=== PATIENT | male | born 1990 | race Caucasian/White ===

== ENCOUNTER → 2020-05-11 11:02 | Outpatient (BNVA) | payer OTHER, SELFPAY | PROVIDERS: Visit Provider Internal Medicine | DX: S61.210D Laceration without foreign body of right index finger without damage to nail, subsequent encounter (principal); X58.XXXD Exposure to other specified factors, subsequent encounter; M24.541 Contracture, right hand | CPT/HCPCS: 99203 ==

== ENCOUNTER → 2020-05-19 15:05 | Outpatient (BNVA) | payer OTHER, SELFPAY | PROVIDERS: Visit Provider Physician Assistant | DX: S61.210D Laceration without foreign body of right index finger without damage to nail, subsequent encounter (principal); S66.312D Strain of extensor muscle, fascia and tendon of right middle finger at wrist and hand level, subsequent encounter; X58.XXXD Exposure to other specified factors, subsequent encounter | CPT/HCPCS: 99213 ==

== ENCOUNTER 2023-09-28 23:50 | Emergency (ER) | payer SELFPAY ==
[2023-09-29] VITALS: BP 148/90; BP 153/105; PULSE 100; PULSE 90; RESP 20; TEMP 36.8; O2SAT 97; BMI 27.4
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
--- NOTE | 2023-09-29 00:41 | MHC.EDTECH ---
pt unwilling to give blood sample at this time. states I shouldn't even be here why should I give blood if I am already stuck here? RN AWARE.
[2023-09-29 00:42] LABS: Amphetamine Screen Urine Not Detected (Not Detect); Barbiturates, Urine Not Detected (Not Detect); Benzodiazepines Screen Urine Not Detected (Not Detect); Buprenorphine Scr Not Detected (Not Detect); Cannabinoid Screen Urine Not Detected (Not Detect); Cocaine Screen Urine POSITIVE (Not Detect); Fentanyl, urine Not Detected (Not Detect); Methadone Screen, Urine Not Detected (Not Detect); Opiate Screen Urine Not Detected (Not Detect); Oxycodone Screen Urine Not Detected (Not Detect); Phencyclidine Screen Urine Not Detected (Not Detect)
--- NOTE | 2023-09-29 00:54 | PC.NURSE ---
mian/ phone number krysta [phone]
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
[2023-09-29 01:10] LABS: MANUAL DIFF FLAG NO
[2023-09-29 01:11] LABS: Basophils Absolute Auto 0.1 X10*3/uL (0.0-0.2); Basophils Percent Auto 0.8 % (0-2); Eosinophils Absolute Auto 0.3 X10*3/uL (0.0-0.4); Eosinophils Percent Auto 3.8 % (0-4); Hematocrit 41.5 % (42.0-52.0); Hemoglobin 14.8 g/dl (14.0-18.0); Imm Gran Abs Auto 0.02 X10*3/uL (0.00-0.03); Imm Gran Pct Auto 0.3 % (0.0-0.4); Lymphocytes Absolute Auto 1.2 X10*3/uL (1.2-4.9); Lymphocytes Percent Auto 17.3 % (20-40); Mean Corpuscular HGB Conc 35.7 g/dl (31.0-36.0); Mean Corpuscular Volume 86.8 fL (80.0-98.0); Mean Platelet Volume 9.9 fL (9.4-12.4); Monocytes Absolute Auto 0.5 X10*3/uL (0.1-1.2); Monocytes Percent Auto 6.6 % (2-11); Neutrophils Absolute Auto 5.1 x10*3/uL (2.0-8.3); Neutrophils Percent Auto 71.2 % (45-73); Platelet Count 308 X10*3/uL (160-400); Red Blood Count 4.78 X10*6/uL (4.60-5.80); Red Cell Distribution Width 12.1 % (11.0-16.0); White Blood Count 7.2 X10*3/uL (4.8-10.8)
--- NOTE | 2023-09-29 01:12 | MHC.EDTECH ---
pt allowed t/w to draw lab work. RN AND PROVIDER AWARE.
[2023-09-29 01:25] LABS: Alanine Aminotransferase 78 U/L (0-40); Albumin Level 4.7 g/dL (3.5-5.0); Alkaline Phosphatase 96 U/L (39-117); Anion Gap 18 (12-20); Aspartate Amino Transferase 71 U/L (5-37); Bilirubin Direct 0.1 mg/dL (0.0-0.5); Bilirubin Total 0.3 mg/dL (0.0-1.0); Blood Urea Nitrogen 11 mg/dL (9-16); Calcium 9.6 mg/dL (8.4-10.2); Carbon Dioxide 25 mmol/L (22-29); Chloride 103 mmol/L (96-108); Estimated Glomerular Filt Rate > 60; Ethanol 206 mg/dL; Glucose Random 122 mg/dL (60-115); Magnesium 1.9 mg/dL (1.6-2.6); Potassium 4.5 mmol/L (3.3-5.1); Sodium 141 mmol/L (135-145); Total Protein 7.4 g/dL (6.5-8.0)
--- NOTE | 2023-09-29 02:02 | PC.NURSE ---
patient asked for legal rules of section 12. provided patient with two [place].gov handouts. allowed client to call gf. notified charge nurse of clients behavior/mood.
--- NOTE | 2023-09-29 02:14 | PC.NURSE ---
clients girlfriend called, asked additional questions, t/w reviewed assessment procedure with clients support person, client asks questions periodically also.
--- NOTE | 2023-09-29 03:25 | PC.NURSE ---
this client was allowed outgoing and icoming phonecalls prior and asked to make additional call (outside of normal phone times) t/w declined this request as the room most proximal to phone-client had awakened in the last hour.
--- NOTE | 2023-09-29 04:28 | PC.NURSE ---
despite t/w's advice to get rest prior to seeing clinician, client conitues to pace punctuated by sitting periodically in rear common area where client is housed presently.
--- NOTE | 2023-09-29 04:53 | PC.NURSE ---
client provided pillow and now appears to be trying to rest.
[2023-09-29 05:59] VITALS: RESP 16
--- NOTE | 2023-09-29 07:01 | PC.NURSE ---
Assumed care of patient at 0645. Patient is laying quietly in their bed. No signs of distress, breathing is even and unlabored.
[2023-09-29 09:15] VITALS: BP 136/96; PULSE 93; RESP 18; TEMP 36.7; O2SAT 97
[2023-09-29 09:34] VITALS: BP 136/96; PULSE 93; RESP 18; TEMP 36.7; O2SAT 97
== END 2023-09-29 09:38 | disposition home or self-care (01) ==
PROVIDERS: Emergency Provider Emergency Medicine
DX: F41.9 Anxiety disorder, unspecified (principal); R45.851 Suicidal ideations; F14.90 Cocaine use, unspecified, uncomplicated; F10.920 Alcohol use, unspecified with intoxication, uncomplicated; Y90.7 Blood alcohol level of 200-239 mg/100 ml
CPT/HCPCS: 36415; 80048; 80076; 80307; 83735; 85025; 99284; 99285; S9485

== ENCOUNTER 2023-12-06 | Outpatient (REF) | payer OTHER, SELFPAY ==
[2023-12-07 10:40] LABS: Amphetamine Screen Urine Not Detected (Not Detect); Barbiturates, Urine Not Detected (Not Detect); Benzodiazepines Screen Urine Not Detected (Not Detect); Buprenorphine Scr Not Detected (Not Detect); Cannabinoid Screen Urine Not Detected (Not Detect); Cocaine Screen Urine Not Detected (Not Detect); Fentanyl, urine Not Detected (Not Detect); Methadone Screen, Urine Not Detected (Not Detect); Opiate Screen Urine Not Detected (Not Detect); Oxycodone Screen Urine Not Detected (Not Detect); Phencyclidine Screen Urine Not Detected (Not Detect)
== END 2023-12-06 00:01 | disposition home or self-care (01) ==
LOC: HO.LNP
PROVIDERS: Visit Provider Psychiatry & Neurology Psychiatry
DX: F14.90 Cocaine use, unspecified, uncomplicated (principal); F10.20 Alcohol dependence, uncomplicated; F33.1 Major depressive disorder, recurrent, moderate
CPT/HCPCS: 80307

== ENCOUNTER → 2023-12-06 11:30 | Outpatient (BNV) | payer OTHER, SELFPAY | PROVIDERS: Visit Provider Psychiatry & Neurology Psychiatry | DX: F10.20 Alcohol dependence, uncomplicated (principal); F43.10 Post-traumatic stress disorder, unspecified; F32.A Depression, unspecified; F43.21 Adjustment disorder with depressed mood; F41.1 Generalized anxiety disorder; F14.10 Cocaine abuse, uncomplicated | CPT/HCPCS: 90792; 99213; 99499 ==

== ENCOUNTER 2023-12-19 11:30 | Outpatient (RCR) | payer OTHER, SELFPAY ==
[2023-12-06 11:11] VITALS: BMI 25.7
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
[2023-12-06 12:06] VITALS: BP 144/83; PULSE 66
--- NOTE | 2023-12-06 14:56 | HO.PHP ---
Client's case has been opened and reviewed in team.
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
--- NOTE | 2023-12-11 22:28 | HO.PHPPROGNO ---
Subjective Subjective Date of Service: 12/11/23 Reason For Visit: depression,anxiety,AUD,CHADD Interim History: Patient seen for follow up. Clonidine helpful for anxiety, was taking twice a day, in AM and afternoon, but in the past day or two has only been taking in the AM. Not feeling anxious in the afternoon. He continues to find groups very helpful and is committed to recovery. He denies any alcohol or substance use in the interim. Denies any cravings. Mood has been great...I'm genuinely happy . He has not found prazosin helpful, has continued to have stress dreams and perhaps more vividly with prazosin. Will stop prazosin and bump up prn clonidine to TID dosing. Denies any hopelessness or SI. Medication Compliance: Yes Side effects from medications: No Attending Groups: Yes Review of Systems Acute medical concerns: No Mental Status Exam Mental Status Exam Narrative: Calm, cooperative, alert, oriented. No tics or tremor. Mood anxious, euthymic, affect anxious, brighter. Speech normal. No evidence of thought disorder. Thought content relevant to stressors, focused on recovery, denies hopelessness or SI. Denies perceptual disturbance and does not appear to be internally preoccupied. Insight/judgment fair to good. Diagnostics Vital Signs (24Hr): BMI result Body Mass Index 25.7 Assessment & Plan Assessment & Plan (1) Alcohol dependence: Status: Acute Code(s): F10.20 - Alcohol dependence, uncomplicated (2) PTSD (post-traumatic stress disorder): Status: Acute Code(s): F43.10 - Post-traumatic stress disorder, unspecified (3) Depression, unspecified: Status: Acute Code(s): F32.A - Depression, unspecified (4) Complicated bereavement: Status: Acute Code(s): F43.21 - Adjustment disorder with depressed mood (5) Other anxiety states: Status: Acute Code(s): F41.1 - Generalized anxiety disorder (6) Cocaine abuse: Status: Acute Code(s): F14.10 - Cocaine abuse, uncomplicated Plan hold prazosin increase clonidine 0.1 mg to TID consider thiamine Naltrexone revisited however patient denies any cravings, and does not feel he needs the additional treatment at this time Continue other regular medications? Routine lab work considered, EKG, routine, UDS as indicated Continue to monitor Patient educated on: diagnosis, medication risk/benefits and substance abuse Informed Consent: understands Reason for contiued partial hosp. stay Substantial Risk for: med/psych decompensation Certification I certify that partial hospital treatment is medically necessary due to the symptoms and problems resulting from the patient's mental illness and the failure to treat the patient at the partial hospital level of care would likely result in the patient requiring inpatient psychiatric care which could not be prevented at a less intensive level of care. Total time managing care of this patient today __30__ minutes. Discharge Plan Discharge Attending provider: Nayely Prado Medications: New clonidine HCl 0.1 mg tablet 0.1 mg PO BID PRN (Reason: anxiety) Qty: 30 0RF Rx Instructions: do not take after 5pm Continued omeprazole 20 mg Capsule,Delayed Release(Dr/Ec) 20 mg PO DAILY Patient Comments: Patient takes OTC. cholecalciferol (vitamin D3) [Vitamin D3] 50 mcg (2,000 unit) Capsule 50 mcg PO DAILY Patient Comments: Patient takes OTC magnesium glycinate 100 mg Tablet PO DAILY Stand Alone Forms: Patient Portal Discharge page Print Language: [place]
--- NOTE | 2023-12-12 11:31 | HO.PHP ---
PHP staff member faxed over a referral for OP therapy, med management, and a elementary instructional coach for Lio through [facility]. PHP staff member is awaiting on those scheduled appointment dates and times.
--- NOTE | 2023-12-18 09:57 | HO.PHP ---
PHP staff member received an email with Lio's upcoming OP therapy intake appointment along with med provider appointment through [facility]. The appointments are below: 12/21/2023 09:00 AM - 09:30 AM Urgent Care Individual Therapy Prog: [facility] Site: [address] [place] [address] Staff: AMANDA CHAN 01/16/2024 09:00 AM - 10:00 AM Psychiatric E/M New - Face to Face v2 Prog: Psychiatric Services Site: [facility] Staff: LOKESH HUBER
--- NOTE | 2023-12-18 10:09 | PC.NURSE ---
New PCP appointment [facility]. [address], [place] Office #[phone]. Patient called and left a message for a new patient appointment. He is awaiting call back for appointment.
--- NOTE | 2023-12-18 20:27 | HO.PHPPROGNO ---
Subjective Subjective Date of Service: 12/18/23 Reason For Visit: depression,anxiety,AUD,CHADD Interim History: Patient seen for follow-up, anticipating discharge at the end of program today.? Reports no acute issues or concerns. ? I am so grateful for this program. Everyone was so supportive. I feel more optimistic and ready to take next steps . He has continued on clonidine which is very helpful for anxiety, and for sleep. Medication compliant, medications well-tolerated. Denies any adverse effects. Denies having any cravings at this time and is committed to his sobriety. Mood is stable.? Denies any hopelessness or SI. Denies thoughts of harming self or others at this time. Denies any aggressive ideation or HI. Denies any paranoia or AH or VH. Sleep, appetite, energy stable. work signed and given to patient, copy sent for scanning to chart Medication Compliance: Yes Side effects from medications: No Attending Groups: Yes Review of Systems Acute medical concerns: No Medical Review of Systems: unchanged Mental Status Exam Mental Status Exam Narrative: Calm, cooperative, alert, oriented. No tics or tremor. Mood anxious, euthymic, affect anxious, brighter. Speech normal. No evidence of thought disorder. Thought content relevant to stressors, focused on recovery, denies hopelessness or SI. Denies perceptual disturbance and does not appear to be internally preoccupied. Insight/judgment fair to good. Diagnostics Vital Signs (24Hr): BMI result Body Mass Index 25.7 Assessment & Plan Assessment & Plan (1) Alcohol dependence: Status: Acute Code(s): F10.20 - Alcohol dependence, uncomplicated (2) PTSD (post-traumatic stress disorder): Status: Acute Code(s): F43.10 - Post-traumatic stress disorder, unspecified (3) Depression, unspecified: Status: Acute Code(s): F32.A - Depression, unspecified (4) Complicated bereavement: Status: Acute Code(s): F43.21 - Adjustment disorder with depressed mood (5) Other anxiety states: Status: Acute Code(s): F41.1 - Generalized anxiety disorder (6) Cocaine abuse: Status: Acute Code(s): F14.10 - Cocaine abuse, uncomplicated Plan [facility]charge from [facility] tomorrow may continue clonidine 0.1 mg to TID for anxiety, sleep now that prazosin has been discontinued may take magnesium glycinate 300-400 mg qhs continue thiamine 100 mg qd continue vitamin D3 2000 IU daily Naltrexone revisited however patient denies any cravings, and does not feel he needs the additional treatment at this time Refills sent to pharmacy Will defer further medication management to outpatient provider - meets with new provider on 01/15 *Safety plan reviewed *Discharge diagnoses, treatment course, discharge plan have been reviewed with patient (including medication regime, medication management, potential side effects) as well as treatment rationale were also revisited *Discharge paperwork signed and given to patient, copy sent for scanning to chart Patient educated on: diagnosis, medication risk/benefits and substance abuse Informed Consent: understands Reason for contiued partial hosp. stay Substantial Risk for: stable for discharge Certification I certify that partial hospital treatment is medically necessary due to the symptoms and problems resulting from the patient's mental illness and the failure to treat the patient at the partial hospital level of care would likely result in the patient requiring inpatient psychiatric care which could not be prevented at a less intensive level of care. Total time managing care of this patient today _30___ minutes. Discharge Plan Discharge Attending provider: Nayely Prado Additional Instructions: Lio has an OP therapy Intake appointment scheduled for December 21, 2023 at 9 AM with Lawson Wren at [address] [facility], in [place], [place]. Lio has a med provider appointment scheduled for January 16, 2024 at 9 AM with Jennifer Conte at [address] [place] [address]. New PCP appointment [facility]. [address] [place], [place] Office #[phone]. Patient awaiting call back for appointment. Medications: New thiamine HCl (vitamin B1) 100 mg tablet 100 mg PO DAILY Qty: 30 1RF cholecalciferol (vitamin D3) [Vitamin D3] 50 mcg (2,000 unit) capsule 50 mcg PO DAILY Qty: 30 1RF Continued omeprazole 20 mg Capsule,Delayed Release(Dr/Ec) 20 mg PO DAILY Patient Comments: Patient takes OTC. cholecalciferol (vitamin D3) [Vitamin D3] 50 mcg (2,000 unit) Capsule 50 mcg PO DAILY Patient Comments: Patient takes OTC magnesium glycinate 100 mg Tablet PO DAILY clonidine HCl 0.1 mg tablet 0.1 mg PO BID PRN (Reason: anxiety) Qty: 30 0RF Rx Instructions: do not take after 5pm Stand Alone Forms: Patient Portal Discharge page Patient Education: Post Traumatic Stress Disorder (DC), Alcohol Dependence (ED), Alcohol Dependence (DC) Print Language: Lao
--- NOTE | 2023-12-30 02:11 | PM.EVENT ---
Event Note Date of Service: 12/28/23 Event Note: Patient called in request for refill on clonidine. Was last filled on 12/07/23 for 15 days. His intake with psychiatrist was scheduled for 01/11/24 but got moved back to 01/16/24. Refill for 15 days efaxed to pharmacy. Time Spent With Patient Time: Total time managing care of this patient today ____ minutes.
== END 2023-12-19 23:59 | disposition home or self-care (01) ==
LOC: HO.PHPA 11:30
PROVIDERS: Visit Provider Psychiatry & Neurology Psychiatry
DX: F43.10 Post-traumatic stress disorder, unspecified (principal); F10.20 Alcohol dependence, uncomplicated; F32.A Depression, unspecified; F43.21 Adjustment disorder with depressed mood; F41.1 Generalized anxiety disorder; F14.10 Cocaine abuse, uncomplicated
CPT/HCPCS: 90791; 90853